=== PATIENT | male | born 1990 | race African-American/Black ===

== ENCOUNTER 2016-12-19 15:47 | Emergency (ER) | payer OTHER ==
[~2016-12-19] VITALS: Ht 180.3 cm; Wt 110.0 kg
[~2016-12-19 15:47] MED LIST: ALBU6.7H INH; FLUTI110I INH; IBUP800T23 PO; IPRA17I INH; LISI-357 PO; ROBA750T3 PO
[2016-12-19 15:49] VITALS: BP 174/87; PULSE 84; RESP 18; TEMP 98.7; O2SAT 100
[2016-12-19] MEDS ORDERED: LORA-373 PO (16:04)
[2016-12-19] MEDS ORDERED: ATEN25TA PO (16:04)
[2016-12-19] MEDS ORDERED: MORPHINE SULFATE 4 MG/ML INJ IV PUSH ONE (16:15)
[2016-12-19] MEDS ORDERED: SODIUM CHLOR 0.9% 1000 ML INJ 1,000 ML IV ONE (16:15)
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
[2016-12-19 16:55] VITALS: RESP 18
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
[2016-12-19 18:02] LABS: AUTOMATED NEUTROPHIL # 3.9 TH/MM3 (1.8-7.7); BASOPHIL % 0.4 % (0.0-2.0); EOSINOPHIL # 0.4 TH/MM3 (0-0.4); EOSINOPHIL % 4.7 % (0.0-4.0); HEMATOCRIT 45.6 % (39.0-51.0); HEMO FLAGS DIFF FINAL; LYMPH % 42.9 % (9.0-44.0); LYMPHOCYTE # 3.9 TH/MM3 (1.0-4.8); MEAN CELL VOLUME 83.1 FL (80.0-100.0); MEAN CORPUSCULAR HEMOGLOBIN 28.7 PG (27.0-34.0); MEAN CORPUSCULAR HGB CONC 34.5 % (32.0-36.0); MONO % 8.8 % (0.0-8.0); NEUT % 43.2 % (16.0-70.0); PLATELET COUNT 315 TH/MM3 (150-450); RED BLOOD COUNT 5.49 MIL/MM3 (4.50-5.90); RED CELL DISTRIBUTION WIDTH 13.9 % (11.6-17.2)
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
[2016-12-19 18:17] LABS: ANION GAP 13 MEQ/L (5-15); AST (GOT) 26 U/L (15-37); BICARBONATE 23.4 MEQ/L (21.0-32.0); BLOOD UREA NITROGEN 13 MG/DL (7-18); CHLORIDE 103 MEQ/L (98-107); GLOMERULAR FILTRATION RATE 108 ML/MIN (>89); POTASSIUM 3.7 MEQ/L (3.5-5.1); SODIUM (NA) 139 MEQ/L (136-145)
[2016-12-19 18:23] LABS: ALKALINE PHOSPHATASE 54 U/L (45-117); ALT (GPT) 33 U/L (12-78); TOTAL BILIRUBIN ADULT 0.3 MG/DL (0.2-1.0)
[2016-12-19] MEDS ORDERED: DIPHTH/TETANUS/ACEL PERTUSSIS (BOOSTER) 0.5 ML VIAL/PFS IM ONE (18:30)
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
[2016-12-19] MEDS ORDERED: HYDR-3533 PO (19:13)
[2016-12-19 19:45] VITALS: BP 108/51
== END 2016-12-19 19:45 | disposition home or self-care (01) ==
LOC: NEPE 15:47
DX: S60.511A Abrasion of right hand, initial encounter (principal); S50.812A Abrasion of left forearm, initial encounter; R10.30 Lower abdominal pain, unspecified; V43.52XA Car driver injured in collision with other type car in traffic accident, initial encounter; Y92.410 Unspecified street and highway as the place of occurrence of the external cause; Z23 Encounter for immunization
CPT/HCPCS: 70450; 71250; 73090; 74176; 80053; 85025; 90471; 90715; 96361; 96374; 99285; J2270; J7030

== ENCOUNTER 2017-12-15 16:45 | Emergency (ER) | payer SELFPAY ==
[~2017-12-15] VITALS: Ht 180.3 cm; Wt 120.0 kg
[~2017-12-15 16:45] MED LIST changes: -ALBU6.7H INH; +ATEN25TA PO; -FLUTI110I INH; +HYDR-3533 PO; -IBUP800T23 PO; -IPRA17I INH; -LISI-357 PO; +LORA0.5T PO; -ROBA750T3 PO
[2017-12-15 16:46] VITALS: BP 177/94; PULSE 90; RESP 16; TEMP 98; O2SAT 97
--- NOTE | 2017-12-15 18:38 | PD ---
HPI Chief Complaint: Cold / Flu Symptoms Time Seen by Provider: 18:11 Travel History International Travel<30 days: No Contact w/Intl Traveler<30days: No Traveled to known affect area: No History of Present Illness HPI 27-year-old male presents to the emergency department for evaluation of flulike symptoms that started last night. Patient reports a runny nose, body aches, diarrhea that started last night. Patient denies any shortness of breath or chest pain. No abdominal pain. No vomiting. Patient has history of hypertension. Patient also reports a mild sore throat. No exacerbating or alleviating factors. Moderate severity. PFSH Past Medical History Asthma: Yes Developmental Delay: No Diminished Hearing: No Past Surgical History Tonsillectomy: Yes (AND ADENOIDS) Social History Alcohol Use: No Tobacco Use: No Substance Use: No Allergies-Medications (Allergen,Severity, Reaction): Coded Allergies: amoxicillin (Unverified Allergy, Severe, HIVES, 12/15/17) shellfish derived (Unverified Allergy, Severe, HIVES, DYSPNEA, 12/15/17) iodine (Unverified Allergy, Unknown, 12/15/17) potassium iodide (Unverified Allergy, Unknown, 12/15/17) povidone-iodine (Unverified Allergy, Unknown, 12/15/17) sodium iodide (Unverified Allergy, Unknown, 12/15/17) sodium iodide (Unverified Allergy, Unknown, 12/15/17) Reported Meds & Prescriptions Reported Meds & Active Scripts Active Reported Amlodipine (Amlodipine Besylate) 5 Mg Tab 5 Mg PO DAILY Lorazepam 0.5 Mg Tab Unknown Dose PO DAILY PRN Atenolol 25 Mg Tab Unknown Dose PO DAILY Review of Systems Except as stated in HPI: all other systems reviewed are Neg Physical Exam Narrative GENERAL: Well-nourished, well-developed male patient, afebrile. SKIN: Focused skin assessment warm/dry. HEAD: Normocephalic. Atraumatic. ENT: Mucosa pink and moist. No erythema or exudates. No uvular edema. No uvular , palatal, or tonsillar deviation. Airway patent. Nasal turbinates appear normal without nasal blood, purulent drainage or septal hematoma. Bilateral tympanic membranes are clear without erythema or perforation. EYES: No scleral icterus. No injection or drainage. NECK: Supple, trachea midline. No JVD or lymphadenopathy. CARDIOVASCULAR: Regular rate and rhythm without murmurs, gallops, or rubs. RESPIRATORY: Breath sounds equal bilaterally. No accessory muscle use. Lungs sounds are clear to auscultation. GASTROINTESTINAL: Abdomen soft, non-tender, nondistended. MUSCULOSKELETAL: No cyanosis, or edema. BACK: Nontender without obvious deformity. No CVA tenderness. Data Data Last Documented VS Vital Signs Date Time Temp Pulse Resp B/P (MAP) Pulse Ox O2 Delivery O2 Flow Rate FiO2 12/15/17 16:46 98.0 90 16 177/94 (121) 97 Orders Orders Influenzae A/B Antigen (12/15/17 18:15) MDM Medical Decision Making Medical Screen Exam Complete: Yes Emergency Medical Condition: Yes Medical Record Reviewed: Yes Differential Diagnosis Influenza versus viral syndrome versus URI Narrative Course 27-year-old male presents to the emergency department for evaluation of flulike symptoms that started last night. He appears well on exam. His vital signs are stable. Influenza swab is ordered and pending. Influenza is negative. Symptoms and physical are consistent with a viral syndrome. Instructed to rest , drink plenty of fluids, Tylenol/Motrin [id number] as needed. The patient was discharged in stable condition with instructions, including return instructions and follow up instructions. Diagnosis Primary Impression: Viral syndrome Referrals: Primary Care Physician call for appointment Patient Instructions: General Instructions, Viral Syndrome (ED) Departure Forms: Tests/Procedures, Work Release Enter return to work date: Dec 18, 2017 Additional Instructions: Rest. Drink plenty of fluids. Tylenol/Motrin [id number] as needed. Follow-up with your primary care physician. Return to the emergency department for any acute worsening of symptoms. Med/Other Pt SpecificInfo: No Change to Meds Disposition: DISCHARGE HOME Condition: Stable Praveena MorenoP Dec 15, 2017 18:38
[2017-12-15] MEDS ORDERED: AMLO5TAB2 PO (18:43)
== END 2017-12-15 19:29 | disposition home or self-care (01) ==
LOC: NEPK 16:45
DX: B34.9 Viral infection, unspecified (principal); I10 Essential (primary) hypertension
CPT/HCPCS: 87804; 99283

== ENCOUNTER 2018-02-17 18:31 | Emergency (ER) | payer SELFPAY ==
[~2018-02-17 18:31] MED LIST changes: +AMLO5TAB2 PO; -HYDR-3533 PO
[2018-02-17 19:03] VITALS: BP 151/87; PULSE 57; RESP 20; TEMP 97.5; O2SAT 98
--- NOTE | 2018-02-17 19:55 | PD ---
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 The patient states that he did not have any primary issue or complaint that he was just there for routine evaluation and to possibly get prescription glasses. Patient states that he does not have sharp definition but is able to see well, does not see double, does not have any headaches, and his vision improves with squinting. Patient has been putting this off for about a year. Primary care physician is Dr. Cooper Allergies to iodine which causes swelling and hives Past medical history has a history of hypertension and is on atenolol and lisinopril [facility] Past Medical History Asthma: Yes Developmental Delay: No Diminished Hearing: No Past Surgical History Tonsillectomy: Yes (AND ADENOIDS) Social History Alcohol Use: No Tobacco Use: No Substance Use: No Allergies-Medications (Allergen,Severity, Reaction): Coded Allergies: amoxicillin (Unverified Allergy, Severe, HIVES, 02/17/18) shellfish derived (Unverified Allergy, Severe, HIVES, DYSPNEA, 02/17/18) iodine (Unverified Allergy, Unknown, 02/17/18) potassium iodide (Unverified Allergy, Unknown, 02/17/18) povidone-iodine (Unverified Allergy, Unknown, 02/17/18) sodium iodide (Unverified Allergy, Unknown, 02/17/18) sodium iodide (Unverified Allergy, Unknown, 02/17/18) Reported Meds & Prescriptions Reported Meds & Active Scripts Active Reported Amlodipine (Amlodipine Besylate) 5 Mg Tab 5 Mg PO DAILY Lorazepam 0.5 Mg Tab Unknown Dose PO DAILY PRN Atenolol 25 Mg Tab Unknown Dose PO DAILY Review of Systems General / Constitutional: No: Fever Eyes: Positive: Blurred Vision HENT: No: Headaches Cardiovascular: No: Chest Pain or Discomfort Respiratory: No: Shortness of Breath Gastrointestinal: No: Abdominal Pain Genitourinary: No: Dysuria Musculoskeletal: No: Pain Skin: No Rash Neurologic: No: Weakness Psychiatric: No: Depression Endocrine: No: Polydipsia Hematologic/Lymphatic: No: Easy Bruising Physical Exam Narrative GENERAL: SKIN: Warm and dry. HEAD: Atraumatic. Normocephalic. EYES: Pupils equal and round. No scleral icterus. No injection or drainage. 20/ 40 bilaterally, which seems to improve to 20/20 with squinting or pinhole test ENT: No nasal bleeding or discharge. Mucous membranes pink and moist. NECK: Trachea midline. No JVD. CARDIOVASCULAR: Regular rate and rhythm. RESPIRATORY: No accessory muscle use. Clear to auscultation. Breath sounds equal bilaterally. GASTROINTESTINAL: Abdomen soft, non-tender, nondistended. Hepatic and splenic margins not palpable. MUSCULOSKELETAL: Extremities without clubbing, cyanosis, or edema. No obvious deformities. NEUROLOGICAL: Awake and alert. No obvious cranial nerve deficits. Motor grossly within normal limits. Five out of 5 muscle strength in the arms and legs. Normal speech. PSYCHIATRIC: Appropriate mood and affect; insight and judgment normal. Data Data Last Documented VS Vital Signs Date Time Temp Pulse Resp B/P (MAP) Pulse Ox O2 Delivery O2 Flow Rate FiO2 02/17/18 22:45 64 16 143/75 (97) 98 Room Air 02/17/18 19:03 97.5 Orders Orders Complete Blood Count With Diff (02/17/18 19:59) Basic Metabolic Panel (Bmp) (02/17/18 19:59) Iv Access Insert/Monitor (02/17/18 19:59) Mri Brain W&W/O Contrast (02/17/18 19:59) Midazolam Inj (Versed Inj) (02/17/18 22:01) Gadodiamide Pf Inj (Omniscan Pf Inj) (02/17/18 22:30) Labs Laboratory Tests Test 02/17/18 20:20 White Blood Count 7.2 TH/MM3 Red Blood Count 5.17 MIL/MM3 Hemoglobin 14.3 GM/DL Hematocrit 44.0 % Mean Corpuscular Volume 85.1 FL Mean Corpuscular Hemoglobin 27.6 PG Mean Corpuscular Hemoglobin Concent 32.4 % Red Cell Distribution Width 12.8 % Platelet Count 299 TH/MM3 Mean Platelet Volume 8.6 FL Neutrophils (%) (Auto) 38.7 % Lymphocytes (%) (Auto) 47.2 % Monocytes (%) (Auto) 8.9 % Eosinophils (%) (Auto) 3.5 % Basophils (%) (Auto) 1.7 % Neutrophils # (Auto) 2.8 TH/MM3 Lymphocytes # (Auto) 3.4 TH/MM3 Monocytes # (Auto) 0.6 TH/MM3 Eosinophils # (Auto) 0.3 TH/MM3 Basophils # (Auto) 0.1 TH/MM3 CBC Comment DIFF FINAL Differential Comment Blood Urea Nitrogen 11 MG/DL Creatinine 0.99 MG/DL Random Glucose 90 MG/DL Calcium Level 9.4 MG/DL Sodium Level 139 MEQ/L Potassium Level 3.7 MEQ/L Chloride Level 105 MEQ/L Carbon Dioxide Level 27.2 MEQ/L Anion Gap 7 MEQ/L Estimat Glomerular Filtration Rate 111 ML/MIN MDM Medical Decision Making Medical Screen Exam Complete: Yes Emergency Medical Condition: Yes Medical Record Reviewed: Yes Differential Diagnosis Aneurysm versus brain mass versus disc edema secondary to hypertensive disease Narrative Course Patient CBC shows no leukocytosis, no anemia, no left shift, no evidence of any elevated platelet count or abnormal platelet count. There is however a mild lymphocytosis that is noted with a 47% lymphocytosis present Electrolytes are all within normal limits as is the creatinine and GFR Currently 2100 awaiting MRI At 2300s MRI of head is read as negative for any brain tumors. Diagnosis Primary Impression: Bilateral optic edema Referrals: Flower Schroeder MD MRI BRAIN NEGATIVE FOR BRAIN TUMOR, PLEASE FOLLOWUP WITH OPHTALMOLOGY FOR FURTHER EVALUATION AND CARE. Patient Instructions: General Instructions Disposition: 01 DISCHARGE HOME Condition: Stable Tyrone Michael MD Feb 17, 2018 19:55
[2018-02-17 20:42] LABS: AUTOMATED NEUTROPHIL # 2.8 TH/MM3 (1.8-7.7); BASOPHIL # 0.1 TH/MM3 (0-0.2); BASOPHIL % 1.7 % (0.0-2.0); EOSINOPHIL # 0.3 TH/MM3 (0-0.4); EOSINOPHIL % 3.5 % (0.0-4.0); HEMOGLOBIN 14.3 GM/DL (13.0-17.0); LYMPH % 47.2 % (9.0-44.0); LYMPHOCYTE # 3.4 TH/MM3 (1.0-4.8); MEAN CELL VOLUME 85.1 FL (80.0-100.0); MEAN CORPUSCULAR HEMOGLOBIN 27.6 PG (27.0-34.0); MEAN CORPUSCULAR HGB CONC 32.4 % (32.0-36.0); MEAN PLATELET VOLUME 8.6 FL (7.0-11.0); MONO % 8.9 % (0.0-8.0); MONOCYTE # 0.6 TH/MM3 (0-0.9); NEUT % 38.7 % (16.0-70.0); PLATELET COUNT 299 TH/MM3 (150-450); RED BLOOD COUNT 5.17 MIL/MM3 (4.50-5.90); RED CELL DISTRIBUTION WIDTH 12.8 % (11.6-17.2); WHITE BLOOD COUNT 7.2 TH/MM3 (4.0-11.0)
[2018-02-17 20:50] VITALS: BP 181/89; PULSE 65; RESP 16; O2SAT 100
[2018-02-17 20:53] LABS: BICARBONATE 27.2 MEQ/L (21.0-32.0); CALCIUM 9.4 MG/DL (8.5-10.1)
[2018-02-17 20:57] LABS: CREATININE 0.99 MG/DL (0.60-1.30)
[2018-02-17] MEDS ORDERED: MIDAZOLAM HCL 5 MG/5 ML VIAL IV PUSH ONE (22:00)
[2018-02-17] MEDS ORDERED: MIDAZOLAM HCL 2 MG/2 ML VIAL IV ONE (22:01)
[2018-02-17] MEDS ORDERED: GADODIAMIDE PF 287 MG/ML 20 ML VIAL (for RAD MRI) IV PUSH ONE (22:30)
[2018-02-17 22:45] VITALS: BP 143/75; PULSE 64; RESP 16; O2SAT 98
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
[2018-02-17 23:25] VITALS: BP 150/76
== END 2018-02-17 23:28 | disposition home or self-care (01) ==
LOC: PHED 18:31
DX: H47.10 Unspecified papilledema (principal); J45.909 Unspecified asthma, uncomplicated; I10 Essential (primary) hypertension
CPT/HCPCS: 70553; 80048; 85025; 96374; 99284; A9579; J2250

== ENCOUNTER 2018-03-31 02:35 | Emergency (ER) | payer SELFPAY ==
[~2018-03-31] VITALS: Ht 180.3 cm; Wt 115.0 kg
[2018-03-31 02:37] VITALS: BP 146/70; PULSE 81; RESP 20; TEMP 97.4; O2SAT 99
[2018-03-31] MEDS ORDERED: ALUMINUM/MAGNESIUM/SIMETH 30 ML CUP PO ONE (03:00)
[2018-03-31] MEDS ORDERED: LIDOCAINE VISCOUS 2% SOLN 15 ML UDC PO ONE (03:00)
--- NOTE | 2018-03-31 03:03 | PD ---
HPI Chief Complaint: Anxiety Time Seen by Provider: 02:47 Travel History International Travel<30 days: No Contact w/Intl Traveler<30days: No Traveled to known affect area: No History of Present Illness HPI 27-year-old black male presents emergency department we will complains of epigastric chest pain which occurred earlier this evening. History of hypertension and anxiety. He states that he had woke up from sleep with pain in his epigastrium as well as feeling very anxious, associated nausea and shortness of breath. He had taken his alprazolam. He states that he has not had anxiety of this nature in the past. He did report being evaluated 2 days ago at [facility] for abdominal discomfort. He was given Zantac. He states that did help. He denies any fever chills. No vomiting, abdominal pain or diarrhea. No dysuria frequency. No diaphoresis. PFSH Past Medical History Narrative Medical Hypertension, anxiety Asthma: Yes Developmental Delay: No Diminished Hearing: No Hypertension: Yes Immunizations Current: Yes Tetanus Vaccination: < 5 Years Past Surgical History Narrative Surgical Tonsils and adenoids, knee arthroscopy Tonsillectomy: Yes (AND ADENOIDS) Social History Alcohol Use: Yes Tobacco Use: No Substance Use: No Allergies-Medications (Allergen,Severity, Reaction): Coded Allergies: amoxicillin (Unverified Allergy, Severe, HIVES, 03/31/18) shellfish derived (Unverified Allergy, Severe, HIVES, DYSPNEA, 03/31/18) iodine (Unverified Allergy, Unknown, 03/31/18) potassium iodide (Unverified Allergy, Unknown, 03/31/18) povidone-iodine (Unverified Allergy, Unknown, 03/31/18) sodium iodide (Unverified Allergy, Unknown, 03/31/18) sodium iodide (Unverified Allergy, Unknown, 03/31/18) Reported Meds & Prescriptions Reported Meds & Active Scripts Active Reported Amlodipine (Amlodipine Besylate) 5 Mg Tab 5 Mg PO DAILY Lorazepam 0.5 Mg Tab Unknown Dose PO DAILY PRN Atenolol 25 Mg Tab Unknown Dose PO DAILY Review of Systems General / Constitutional: No: Fever Eyes: No: Visual changes HENT: No: Headaches Cardiovascular: Positive: Chest Pain or Discomfort (Epigastric) Respiratory: Positive: Shortness of Breath, No: Cough Gastrointestinal: Positive: Nausea, No: Vomiting, Abdominal Pain Genitourinary: No: Dysuria Musculoskeletal: No: Pain Skin: No Rash Neurologic: No: Weakness Psychiatric: No: Depression Endocrine: No: Polydipsia Hematologic/Lymphatic: No: Easy Bruising Physical Exam Narrative GENERAL: Well-developed, well-nourished in no apparent distress. Nontoxic appearing. Anxious appearing. HEAD: Normocephalic, atraumatic. EYES: Pupils equal round and reactive. Extraocular motions intact. No scleral icterus. No injection or drainage. ENT: Nose clear. Throat without erythema, tonsillar hypertrophy or exudate. Uvula midline. Airway patent. NECK: Trachea midline. Supple, nontender, moves head freely. No central bony tenderness or spasm. CARDIOVASCULAR: Regular rate and rhythm without murmurs, gallops, or rubs. RESPIRATORY: Clear to auscultation. Breath sounds equal bilaterally. No wheezes , rales, or rhonchi. GASTROINTESTINAL: Abdomen soft, non-tender, nondistended. No hepato-splenomegaly , or palpable masses. No guarding. EXTREMITIES: No clubbing, cyanosis, or edema. No joint tenderness. BACK: Nontender without deformity. No flank tenderness. NEUROLOGICAL: Awake, alert and oriented x 3 .Cranial nerves grossly intact. Motor and sensory grossly within normal limits. Normal speech. Data Data Last Documented VS Vital Signs Date Time Temp Pulse Resp B/P (MAP) Pulse Ox O2 Delivery O2 Flow Rate FiO2 03/31/18 02:37 97.4 81 20 146/70 (95) 99 Orders Orders Electrocardiogram (03/31/18 02:56) Al-Mag Hy-Si 40-40-4 Mg/Ml Liq (Mag-Al P (03/31/18 03:00) Lidocaine 2% Viscous (Xylocaine 2% Visco (03/31/18 03:00) MDM Medical Decision Making Medical Screen Exam Complete: Yes Emergency Medical Condition: Yes Medical Record Reviewed: Yes Interpretation(s) EKG: Sinus rhythm with a ventricular rate of 60. No abnormal ST elevation or depression. Normal axis. Normal intervals. Differential Diagnosis Differential diagnosis: Chest pain, coronary disease, hypertension, anxiety, GERD, pleurisy, pericarditis Narrative Course Patient is well-appearing. Patient symptoms do not sound of a cardiac etiology. His vital signs are stable. We will obtain an EKG. He is given a GI cocktail of Maalox and lidocaine. I suspect this is most likely a GI etiology. This is also likely due to his recent GI complaint 2 days ago. Patient vital signs are stable. He did have some improvement of his symptoms after taking his alprazolam at home. Patient has had complete resolution of his pain. His EKG shows no acute ST-T wave changes. This is GERD Diagnosis Primary Impression: GERD Patient Instructions: General Instructions Additional Instructions: Rest. Avoid alcohol. Do not eat 2 hours prior to going to bed. 2 Zantac [id number] twice a day Follow-up with a medical doctor in 1 week. Return to the ER for emergencies. Med/Other Pt SpecificInfo: No Meds Exist/No RX given Disposition: 01 DISCHARGE HOME Condition: Stable Erasto Payne Mar 31, 2018 03:02
--- NOTE | 2018-03-31 16:03 | EKG ---
Date Performed: 03/31/2018 Time Performed: 03:09:54 PTAGE: 27 years EKG: Sinus rhythm MINIMAL VOLTAGE CRITERIA FOR LVH, CONSIDER NORMAL VARIANT NONSPECIFIC T-WAVE ABNORMALITY BORDERLINE ECG INTERPRETATION BASED ON A DEFAULT AGE OF 40 YEARS Since the PREVIOUS TRACING , no significant change noted PREVIOUS TRACIN04/27/2009 00.00 DOCTOR: Sj Jain Interpretating Date/Time 03/31/2018 16:00:05
== END 2018-03-31 03:29 | disposition home or self-care (01) ==
LOC: NEPD 02:35
DX: K21.9 Gastro-esophageal reflux disease without esophagitis (principal); I10 Essential (primary) hypertension
CPT/HCPCS: 93005